=== PATIENT | female | born 1945 | race Caucasian/White ===

== ENCOUNTER 2020-08-30 15:42 | Emergency (ER) | payer MEDICARE, OTHER ==
[2020-08-30 18:31] LABS: BASOPHIL 0.7 % (0-2); EOSINOPHIL 0.9 % (0-7); HCT 34.8 % (37.0-47.0); HGB 11.3 g/dl (12.5-16.0); LYMPHOCYTE 12.8 % (15-48); MCH 29.5 pg (25.0-31.0); MCHC 32.5 g/dL (32.0-36.0); MCV 90.9 fL (78.0-100.0); MONOCYTE 6.6 % (0-12); MPV 10.8 fL (6.0-9.5); NEUTROPHIL 78.8 % (41-80); NRBC 0; PLT 174 K/uL (150-400); RBC 3.83 M/uL (4.20-5.40); RDW 13.5 % (11.5-14.0); WBC 9.1 K/uL (4.0-10.5)
[2020-08-30 18:42] LABS: ALBUMIN 3.8 g/dL (3.4-5.0); BILIRUBIN - TOTAL 0.4 mg/dL (0.2-1.0); BUN/CREAT RATIO (CALC) 19.4 RATIO; CREATININE 1.39 mg/dL (0.51-0.95); GLOBULIN (CALCULATION) 4.1 g/dL; POTASSIUM 3.5 mmol/L (3.5-5.1); TOTAL PROTEIN 7.9 g/dL (6.4-8.2)
[2020-08-30 19:07] LABS: BILIRUBIN NEGATIVE (NEGATIVE); BLOOD NEGATIVE Ery/uL (NEGATIVE); CLARITY CLEAR (CLEAR); COLOR YELLOW (YELLOW); GLUCOSE (U) NORMAL (NORMAL); LEUKOCYTES NEGATIVE Leu/uL (NEGATIVE); NITRITE NEGATIVE (NEGATIVE); PROTEIN NEGATIVE (NEGATIVE); UROBILINOGEN 0.2 mg/dL (0.2-1.0)
[2020-08-30 20:41] LABS: TOTAL T4 9.6 ug/dL (4.7-13.3)
== END 2020-08-30 20:53 | disposition home or self-care (01) ==
LOC: FER 15:42
PROVIDERS: Nurse Practitioner Family
DX: R00.2 Palpitations (principal); I12.9 Hypertensive chronic kidney disease with stage 1 through stage 4 chronic kidney disease, or unspecified chronic kidney disease; E11.22 Type 2 diabetes mellitus with diabetic chronic kidney disease; N18.9 Chronic kidney disease, unspecified; Z79.4 Long term (current) use of insulin
CPT/HCPCS: 36415; 71046; 80053; 81003; 84436; 84443; 84484; 85025; 93005